=== PATIENT | male | born 2005 | race Two or more races ===

== ENCOUNTER 2024-08-09 08:46 | Outpatient (CLI) | payer OTHER | END 2024-08-09 09:01 | disposition home or self-care (01) | LOC: RAD 08:46 | DX: R10.9 Unspecified abdominal pain (principal); R07.82 Intercostal pain; Z13.220 Encounter for screening for lipoid disorders; Z11.3 Encounter for screening for infections with a predominantly sexual mode of transmission; Z13.0 Encounter for screening for diseases of the blood and blood-forming organs and certain disorders involving the immune mechanism; Z13.89 Encounter for screening for other disorder ==

== ENCOUNTER 2025-04-25 07:13 | Outpatient (CLI) | payer OTHER | END 2025-04-25 07:20 | disposition home or self-care (01) | LOC: SONOGRAMA 07:13 | PROVIDERS: ATTEND Specialist | DX: K82.8 Other specified diseases of gallbladder (principal); E16.2 Hypoglycemia, unspecified; E80.7 Disorder of bilirubin metabolism, unspecified ==